=== PATIENT | male | born 1995 | race African-American/Black ===

== ENCOUNTER 2018-08-22 16:35 | Emergency (ER) | payer MEDICAID, OTHER ==
[~2018-08-22] VITALS: Ht 190.5 cm; Wt 100.0 kg
[2018-08-22] MEDS ORDERED: IBUPROFEN 800MG TABLET PO ONE (18:30)
[2018-08-22 18:39] VITALS: BP 115/61
== END 2018-08-22 19:53 | disposition home or self-care (01) ==
LOC: ER 16:35
DX: S62.633A Displaced fracture of distal phalanx of left middle finger, initial encounter for closed fracture (principal); S39.012A Strain of muscle, fascia and tendon of lower back, initial encounter; Y04.0XXA Assault by unarmed brawl or fight, initial encounter; Y93.89 Activity, other specified; Y92.9 Unspecified place or not applicable
CPT/HCPCS: 29130; 72100; 73130; 99283

== ENCOUNTER 2024-04-12 21:34 | Emergency (ER) | payer MEDICAID ==
[~2024-04-12] VITALS: Ht 190.5 cm; Wt 98.0 kg
[2024-04-12 21:59] VITALS: O2SAT 100
[2024-04-12] MEDS ORDERED: DIPHENHYDRAMINE 50MG CAPSULE PO ONE (22:15)
[2024-04-12] MEDS ORDERED: DIPH50CA41 MT (22:48)
[2024-04-12] MEDS ORDERED: P50 MT (22:48)
[2024-04-12 23:00] VITALS: BP 117/66; PULSE 70; RESP 16; TEMP 36.66960; O2SAT 100
[2024-04-12] MEDS: DIPHENHYDRAMINE 25MG CAPSULE PO NR (23:00)
[2024-04-12] MEDS: METHYLPREDNISOLONE SOD SUCC 125MG/2ML (ACT-O-VIAL) IM ONE (23:00)
== END 2024-04-13 01:11 | disposition home or self-care (01) ==
LOC: ER 21:44
DX: R21 Rash and other nonspecific skin eruption (principal); F12.10 Cannabis abuse, uncomplicated
CPT/HCPCS: 96372; 99283; 86592; Q0163; J2919; Z7610